=== PATIENT | female | born 1980 | race Caucasian/White ===

== ENCOUNTER 2025-06-20 20:45 | Emergency (ER) | payer OTHER ==
[~2025-06-20] VITALS: Ht 165.1 cm; Wt 90.7 kg
[2025-06-20] MEDS ORDERED: LIDOCAINE VISCOUS 2% UD 15 ML UDC ONE (21:15)
[2025-06-20] MEDS ORDERED: ACETAMINOPHEN ES 500 MG TABLET ONE (21:15)
[2025-06-20] MEDS ORDERED: KETOROLAC TROMETHAMINE 15 MG/ML VIAL ONE (21:15)
[2025-06-20] MEDS: ACETAMINOPHEN ES 500 MG TABLET PO ONE (21:16)
[2025-06-20] MEDS: KETOROLAC TROMETHAMINE 15 MG/ML VIAL IM ONE (21:16)
[2025-06-20] MEDS: LIDOCAINE VISCOUS 2% UD 15 ML UDC MM ONE (21:16)
[2025-06-20] MEDS ORDERED: BENZ-13 PO (21:37)
[2025-06-20] MEDS ORDERED: IBUP-1490 PO (21:37)
[2025-06-20 21:50] VITALS: BP 132/80; TEMP 98.3; O2SAT 99
== END 2025-06-20 21:50 | disposition home or self-care (01) ==
LOC: ER 20:59
DX: J06.9 Acute upper respiratory infection, unspecified (principal); Z60.2 Problems related to living alone
CPT/HCPCS: 99283; 71045; 96372; J1885